=== PATIENT | female | born 1990 | race African-American/Black ===

== ENCOUNTER 2016-07-09 15:21 | Observation (INO) ==
[2016-07-09] MEDS ORDERED: BISACODYL 10 MG SUPP RECTAL PRN (16:11)
[2016-07-09] MEDS ORDERED: MAGNESIUM HYDROXIDE SUSP 30 ML UDCUP PO PRN (16:11)
[2016-07-09] MEDS ORDERED: ONDANSETRON 4 MG/2 ML VIAL IV PRN (16:11)
[2016-07-09] MEDS ORDERED: ACETAMINOPHEN 325 MG TABLET PO PRN (16:11)
[2016-07-09] MEDS ORDERED: DEXTROSE 5% LACTATED RINGERS 500 ML IV ONE (16:11)
[2016-07-09] MEDS ORDERED: FAMOTIDINE 20 MG/2 ML VIAL IV ONE (16:14)
[2016-07-09 16:55] LABS: Basophils % 0.4 % (0.0-0.8); Eosinophils % 0.3 % (0.00-10.9); Hemoglobin 13.7 GM/DL (12.0-16.0); Immature Granulocytes % 0.3 %; Immature Granulocytes Absolute 0.02 #; Lymphocytes # 2.2 10*3/uL (1.4-4.0); Lymphocytes % 28.5 % (21.3-54.2); Mean Corpuscular HGB Conc 35.1 GM/DL (32-36); Mean Corpuscular Hemoglobin 31 PG (27-34); Mean Platelet Volume 9.1 FL (9.6-12.0); Monocytes # 0.7 10*3/uL (0.11-0.8); Monocytes % 8.7 % (1.7-12.7); Neutrophils # 4.7 10*3/uL (1.4-7.4); Neutrophils % 61.8 % (38.7-73.9); Platelet Count 330 T/CUMM (130-400); Red Blood Count 4.38 MC/CUMM (3.8-5.5); Red Cell Distribution Width 11.4 % (9.3-17.3); White Blood Count 7.6 T/CUMM (4-12)
[2016-07-09 17:51] LABS: Hepatitis B Surface Ag Quant < 0.10 Index; Hepatitis B Surface Ag Result Negative (Negative)
[2016-07-09] MEDS: LACTATED RINGERS 1,000 ML IV SCH (18:08)
[2016-07-09 21:51] LABS: Apearance,Urine Slightly Hazy (Clear); Bilirubin,Urine Negative (Negative); Blood, Urine Negative (Negative); Glucose,Urine (UA) >=500 mg/dL (Negative); Ketones,Urine 20 mg/dL (Negative); Mucus,Urine Occasional /LPF (Occasional); Nitrite,Urine Negative (Negative); Protein,Urine Negative; RBC,Urine 1 /HPF (0-4); Squamous Epithelial Cell,Urine Occasional /HPF (0-10); Urine Color Yellow (Yellow); Urine Specific Gravity 1.022 (1.001-1.035); Urine Urobilinogen < 2.0 EU/DL (0.2-1.0); WBC,Urine 3 /HPF (0-6)
[2016-07-10] MEDS: LACTATED RINGERS 1,000 ML IV SCH (02:10)
[2016-07-10] MEDS: DOCUSATE SODIUM 100 MG CAPSULE PO SCH ×2 (04:52→08:59)
[2016-07-10] MEDS ORDERED: FAMOTIDINE 20 MG TABLET PO SCH (07:00)
[2016-07-10 12:55] VITALS: BP 106/74
== END 2016-07-10 12:30 | disposition home or self-care (01) ==
LOC: N.OB
PROVIDERS: ADMIT Obstetrics & Gynecology; ATTEND Obstetrics & Gynecology

== ENCOUNTER 2018-01-11 09:42 | Inpatient (IN) ==
[2018-01-11] MEDS ORDERED: ONDANSETRON 4 MG/2 ML VIAL IV PRN (11:58)
[2018-01-11] MEDS ORDERED: BUTORPHANOL 2 MG/ML VIAL IV PRN (11:58)
[2018-01-11] MEDS ORDERED: MEPERIDINE 50 MG/1 ML VIAL IV PRN (11:58)
[2018-01-11] MEDS: LACTATED RINGERS 1,000 ML IV SCH ×2 (12:28→19:46)
[2018-01-11 12:35] LABS: Basophils % 0.2 % (0.0-0.8); Eosinophils # 0.1 10*3/uL (0.0-0.87); Eosinophils % 0.6 % (0.00-10.9); Hematocrit 30.1 VOL% (35.7-47.0); Hemoglobin 9.5 GM/DL (12.0-16.0); Immature Granulocytes % 0.7 %; Immature Granulocytes Absolute 0.06 #; Lymphocytes # 2.1 10*3/uL (1.4-4.0); Lymphocytes % 23.1 % (21.3-54.2); Mean Corpuscular HGB Conc 31.6 GM/DL (32-36); Mean Corpuscular Hemoglobin 25 PG (27-34); Mean Corpuscular Volume 79.8 FL (87-102); Mean Platelet Volume 10.7 FL (9.6-12.0); Monocytes # 0.8 10*3/uL (0.11-0.8); Monocytes % 9.2 % (1.7-12.7); NRBC # 0.02 10*3/uL; Neutrophils # 5.9 10*3/uL (1.4-7.4); Neutrophils % 66.2 % (38.7-73.9); Platelet Count 260 T/CUMM (130-400); Red Blood Count 3.77 MC/CUMM (3.8-5.5); Red Cell Distribution Width 15.8 % (9.3-17.3)
[2018-01-11 13:09] LABS: Alanine Aminotransferase 16 U/L (13-56); Albumin 2.6 G/DL (3.4-5.0); Alkaline Phosphatase 226 U/L (45-117); Aspartate Amino Transferase 16 U/L (0-37); Bilirubin,Total < 0.39 MG/DL (0.2-1.0); Blood Urea Nitrogen 5 MG/DL (7-18); Glucose 68 MG/DL (74-106); Osmolality,Calculated 267.8 MOS/KG (273-304); Sodium 137 MMOL/L (136-145); Total Protein 7.3 G/DL (6.4-8.3); Uric Acid 4.1 MG/DL (2.6-6.0)
[2018-01-11 13:31] LABS: Rubella Antibody IgG 4.7 IU/ML
[2018-01-12] MEDS: LACTATED RINGERS 1,000 ML IV SCH ×3 (00:26→16:55)
[2018-01-12] MEDS ORDERED: ePHEDrine 50 MG/ML AMP IV PRN (01:42)
[2018-01-12] MEDS ORDERED: NALOXONE 0.4 MG/ML VIAL IV PRN (01:42)
[2018-01-12] MEDS ORDERED: diphenhydrAMINE 50 MG/1 ML VIAL IV PRN (01:42)
[2018-01-12] MEDS ORDERED: PROMETHAZINE 25 MG/1 ML VIAL IM ONE (01:42)
[2018-01-12] MEDS ORDERED: hydrOXYzine HCL 25 MG/1 ML VIAL IM PRN (01:42)
[2018-01-12] MEDS ORDERED: FAMOTIDINE 20 MG/2 ML VIAL IV ONE (01:44)
[2018-01-12] MEDS ORDERED: CITRIC ACID/SODIUM CITRATE 30 ML UDCUP PO ONE (01:44)
[2018-01-12] MEDS ORDERED: fentaNYL 2 MCG/ROPIV 0.2% EPID 100 ML EPIDURAL SCH (02:00)
[2018-01-12] MEDS ORDERED: TERBUTALINE 1 MG/1 ML VIAL SUBCUT ONE (03:23)
[2018-01-12] MEDS ORDERED: OXYTOCIN/LR 20 UNIT/1,000 ML BAG IV ONE ×2 (04:14→04:41)
[2018-01-12] MEDS ORDERED: IBUPROFEN 800 MG TABLET PO PRN (04:41)
[2018-01-12] MEDS ORDERED: ONDANSETRON 4 MG/2 ML VIAL IV PRN (04:41)
[2018-01-12] MEDS ORDERED: RHO(D) IMMUNE GLOBULIN 300 MCG SYRINGE IM ONE (04:41)
[2018-01-12] MEDS ORDERED: SIMETHICONE CHEW 80 MG TABLET PO PRN (04:41)
[2018-01-12] MEDS ORDERED: ACETAMINOPHEN 325 MG TABLET PO PRN (04:41)
[2018-01-12] MEDS ORDERED: MORPHINE 10 MG/10 ML VIAL ONE (04:50)
[2018-01-12] MEDS ORDERED: LIDOCAINE MPF 2% /EPI 20 ML VIAL ONE (04:52)
[2018-01-12] MEDS ORDERED: ONDANSETRON 4 MG/2 ML VIAL ONE (04:52)
[2018-01-12] MEDS ORDERED: fentaNYL 100 MCG/2 ML VIAL ONE (04:52)
[2018-01-12] MEDS ORDERED: PHENYLEPHRINE 1 MG/10 ML SYRINGE IV ONE (04:52)
[2018-01-12] MEDS ORDERED: SODIUM BICARBONATE 2.4 MEQ/5 ML VIAL ONE (04:52)
[2018-01-12] MEDS ORDERED: ceFAZolin 1,000 MG in SYRINGE 1 EACH IV SCH (05:00)
[2018-01-12] MEDS: DOCUSATE SODIUM 100 MG CAPSULE PO SCH ×2 (10:41→21:16)
[2018-01-12] MEDS: MULTIVITAMIN (PRENATAL) TABLET PO SCH (10:42)
[2018-01-12] MEDS: ceFAZolin 1,000 MG in SYRINGE 1 EACH IV SCH ×2 (11:48→19:37)
[2018-01-13] MEDS: LACTATED RINGERS 1,000 ML IV SCH (01:03)
[2018-01-13 06:00] LABS: Basophils % 0.1 % (0.0-0.8); Eosinophils # 0.1 10*3/uL (0.0-0.87); Eosinophils % 0.6 % (0.00-10.9); Hematocrit 26.3 VOL% (35.7-47.0); Hemoglobin 8.1 GM/DL (12.0-16.0); Immature Granulocytes % 0.9 %; Immature Granulocytes Absolute 0.12 #; Lymphocytes # 1.8 10*3/uL (1.4-4.0); Lymphocytes % 13.4 % (21.3-54.2); Mean Corpuscular HGB Conc 30.8 GM/DL (32-36); Mean Corpuscular Hemoglobin 25 PG (27-34); Mean Corpuscular Volume 80.4 FL (87-102); Mean Platelet Volume 10.2 FL (9.6-12.0); Monocytes # 1.3 10*3/uL (0.11-0.8); Monocytes % 9.6 % (1.7-12.7); NRBC # 0.02 10*3/uL; Neutrophils # 10.2 10*3/uL (1.4-7.4); Neutrophils % 75.4 % (38.7-73.9); Platelet Count 233 T/CUMM (130-400); Red Blood Count 3.27 MC/CUMM (3.8-5.5); Red Cell Distribution Width 16.1 % (9.3-17.3); White Blood Count 13.5 T/CUMM (4-12)
[2018-01-13] MEDS: DOCUSATE SODIUM 100 MG CAPSULE PO SCH ×2 (08:53→22:16)
[2018-01-13] MEDS: MAGNESIUM HYDROXIDE SUSP 30 ML UDCUP PO PRN ×2 (08:53→22:16)
[2018-01-13] MEDS: MULTIVITAMIN (PRENATAL) TABLET PO SCH (08:53)
[2018-01-14 07:19] VITALS: BP 124/83
[2018-01-14] MEDS: DOCUSATE SODIUM 100 MG CAPSULE PO SCH (09:00)
[2018-01-14] MEDS: MULTIVITAMIN (PRENATAL) TABLET PO SCH (09:00)
[2018-01-14] MEDS ORDERED: DIPH/TET/ACEL PERT BOOSTER VACCINE 0.5 ML VIAL IM ONE (10:23)
[2018-01-14] MEDS ORDERED: MEASLES/MUMPS/RUBELLA VACCINE 0.5 ML VIAL SUBCUT ONE (10:28)
== END 2018-01-14 12:15 | disposition home or self-care (01) | DRG 540 ==
LOC: N.ULTRA 09:42 → N.LD 09:43 → N.OB 01-12 09:10
PROVIDERS: ADMIT Obstetrics & Gynecology; ATTEND Obstetrics & Gynecology
PROC: LDCSECT (ICD-10-PCS; 2018-01-12 04:00)